=== PATIENT | male | born 2000 | race Hispanic/Latino ===

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

== ENCOUNTER 2025-03-28 03:27 | Emergency (ER) | payer SELFPAY ==
[~2025-03-28] VITALS: Ht 165.1 cm; Wt 68.0 kg
--- NOTE | 2025-03-28 03:51 | NUR ---
PATIENT REFUSING TO GIVE ME ADDRESS OF WHERE THIS HAPPENED, DOES NOT WANT TO REPORT DOG BITE, IT WAS HIS OWN DOG.
--- NOTE | 2025-03-28 04:27 | ERN ---
General Chief Complaint: Animal Bite Stated Complaint: DOG BITE Time Seen by MD: 03:48 History of Present Illness Initial Comments 44-year-old male came in for dog bite on his right upper lip. Allergies: Coded Allergies: No Known Drug Allergies (Unverified Allergy, Unknown, 03/28/25) Past Medical History Past Medical History: No Pertinent History Past Surgical History: None ROS Dictation Dog bite Physical Exam Physical Exam Dictation With a small but he is cm laceration noted right upper lip with no active bleed ing. MDM Laceration note Laceration site is clean3 mL of lidocaine injected, to be single layer ethylon sutures placed. Patient tolerated the procedure without any concerns. ED Course Orders Procedure Category Date Status Time Laceration Tray Set CPOE 03/28/25 Transmitted Up (Er) 03:53 Lidocaine Hcl 1% 20ml PHA 03/28/25 Logged Vial (Lidocaine Hc 04:00 Tetanus,Diphtheria PHA 03/28/25 Logged Tox [Adult] (Diphther 04:00 Current Medications Medications (Trade) Dose Ordered Sig/Carmel Route PRN Reason Start Time Stop Time Status Last Admin Dose Admin Lidocaine HCl (Lidocaine HCl 1% 20ml Vial) 3 ml ONCE INJ 03/28/25 04:00 04/27/25 03:59 UNV Tetanus/ Diphtheria Toxoids Adsorbed (DiphthERIA-teTANUS TOXOID [ADULT]/ DECAVAC) 0.5 ml ONCE ONCE IM 03/28/25 04:00 03/28/25 04:01 UNV Vital Signs Date Time Temp Pulse Resp B/P (MAP) Pulse Ox O2 Delivery O2 Flow Rate FiO2 03/28/25 03:28 98.2 105 18 137/74 99 Room Air 0 DX & DISP Disposition: Discharge Departure Impression: Primary Impression: Dog bite Condition: Stable Scripts Amoxicillin/Potassium Clav (Amox Tr-K Clv 875-125 mg Tab) 875 Mg-125 Mg Tablet 1 EACH PO BID for 5 Days, #10 TAB 0 Refills Prov: AMY HERNANDEZ MD 03/28/25 Referrals: SELF,REFERRAL (PCP) AMY HERNANDEZ MD Mar 28, 2025 04:27
[2025-03-28] MEDS: LIDOCAINE HCL 1% 20 ML VIAL INJ SCH (04:55)
[2025-03-28 04:56] VITALS: BP 118/76; PULSE 78; RESP 18; TEMP 98.4; O2SAT 98
== END 2025-03-28 04:56 | disposition home or self-care (01) ==
LOC: EDH 03:27
DX: S01.511A Laceration without foreign body of lip, initial encounter (principal); W54.0XXA Bitten by dog, initial encounter; Y93.89 Activity, other specified; Y92.89 Other specified places as the place of occurrence of the external cause; Y99.8 Other external cause status
CPT/HCPCS: 12011; 90471; 90714; 99283; J2003

== ENCOUNTER 2025-04-10 15:04 | Emergency (ER) | payer SELFPAY ==
[~2025-04-10] VITALS: Ht 170.2 cm; Wt 77.1 kg
[2025-04-10 15:04] VITALS: BP 134/83; PULSE 75; RESP 17; TEMP 98
[~2025-04-10 15:04] MED LIST: AMOX1TAB16 PO
--- NOTE | 2025-04-10 15:26 | ERN ---
ED Note History of Present Illness Stated Complaint: SUTURE REMOVAL Chief Complaint: Suture/Staple Removal Time Seen by MD: 15:12 Time Seen by Midlevel: 15:15 Dictation: 24 year-old male coming in for removal to the right upper lip. Patient states he was bit by his dog and has a had laceration repair. Patient states laceration was then about over a week ago. Denies any signs of infection or any pain. Allergies: Coded Allergies: No Known Drug Allergies (Unverified Allergy, Unknown, 03/28/25) Home Meds Active Scripts Amoxicillin/Potassium Clav (Amox Tr-K Clv 875-125 mg Tab) 875 Mg-125 Mg Tablet, 1 EACH PO BID for 5 Days, #10 TAB 0 Refills Prov:AMY HERNANDEZ MD 03/28/25 Past Medical History Past Medical History: No Pertinent History Surgical History: None Review of System Dictation Constitutional: Negative for fever,chills, and weight loss Eyes: Negative for injury, pain,redness, and discharge ENT: Negative for injury,pain or swelling Cardiovascular: Negative for chest pain, palpitations, and edema Respiratory: Negative for shortness of breath, cough, and wheezing, Abdomen/GI: Negative for abdominal pain, nausea, vomiting, diarrhea, and constipation Back: Negative for injury and pain : Negative for injury, bleeding and discharge MS/Extremity: Negative for injury and deformity Skin: Negative for rash, and discoloration Neuro: Negative for headache, weakness, numbness, tingling, and seizure Psych: Negative for suicide ideation, homicidal ideation, and hallucinations Review of Systems: was completed Initial Vital Sign VS Vital Signs Date Time Temp Pulse Resp B/P (MAP) Pulse Ox O2 Delivery O2 Flow Rate FiO2 04/10/25 15:04 98.1 75 17 134/83 98 Room Air 0 Physical Exam Dictation General: awake, alert, NAD Head/Face: Normocephalic, atraumatic Eyes: PERRL, EOMI, vision at baseline ENT: oral cavity clear, TMs clear, no signs of infection Neck: Trachea midline, supple, no nuchal rigidity Cardiovascular: RRR, normal S1/S2, No MRGs, no JVD Respiratory: CTAB, no respiratory distress, No rales or wheezes Abdomen: Soft, non-tender, non-distended, normal bowel sounds, no guarding or rebound. Skin: Warm, dry, normal turgor, no rash, three stitches noted to the right upper lip MS/Extremity: Pulses equal, no cyanosis, neurovascular intact, FROM Neuro: COAx4, GCS 15, strength 5/5, CN 2-12 intact, normal cerebellar exam, normal gait, Psych: Normal behavior, mood, and affect normal ED Course ED Course Vital Signs Date Time Temp Pulse Resp B/P (MAP) Pulse Ox O2 Delivery O2 Flow Rate FiO2 04/10/25 15:04 98.1 75 17 134/83 98 Room Air 0 Medical Decision Making MDM MDM: 24 year-old male coming in for removal to the right upper lip. Patient states he was bit by his dog and has a had laceration repair. Patient states laceration was then about over a week ago. Denies any signs of infection or any pain. Using the suture removal kit and remove the three sutures on the right upper lip. No complications. Educated patient on wound care. Patient verbalize understanding, answered all questions. Differential diagnosis: Edit sutures, cellulitis, infected laceration Rationale: Tests considered and ordered secondary to shared decision making include: Previous outside records reviewed: Old ER visits. Risk of complication and/or morbidity or mortality of patient management: None Medications-Per medication reconciliation Need for hospitalization: Patient does not meet criteria for hospitalization. Need for emergency major/minor surgery: No There are no social concerns with this patient. Prescription drug management Prescriptions will include symptomatic care Patient's prior external medical records from other ER visits were reviewed by me as indicated. Prior testing and results from previous visits were reviewed. Prior tests were taken into account with medical decision making and resource utilization, independent historian/historians were used to obtain complete medical history. I independently interpreted the test that were performed, results were reviewed by me and considered findings on radiology if ordered. Medical management and examination interpretation discussions were had by me with other qualified healthcare professionals as indicated for the patient's care. DX & DISP Disposition: Discharge Departure Impression: Primary Impression: Visit for suture removal Condition: Stable Additional Instructions: Keep the wound cleaned with soap and water. Return if you have any signs of infection. Referrals: SELF,REFERRAL (PCP) Time of Disposition: 15:25 I have reviewed the case, and I agree with, Diagnosis and Plan [facility] Apr 10, 2025 15:26
== END 2025-04-10 15:35 | disposition home or self-care (01) ==
LOC: EDH 15:04
DX: S01.511D Laceration without foreign body of lip, subsequent encounter (principal); Z48.02 Encounter for removal of sutures; W54.0XXD Bitten by dog, subsequent encounter
CPT/HCPCS: 99282